=== PATIENT | female | born 1950 | race American Indian/Alaskan Native ===

== ENCOUNTER 2017-07-05 06:47 | Day surgery (SDC) | payer MEDICARE ==
[2017-07-05 07:14] VITALS: BMI 27.6
[2017-07-05 07:38] VITALS: O2SAT 100
--- NOTE | 2017-07-05 08:27 | CP.SDSHP ---
Same Day Surgery H & P - History Proposed Procedure: COLONSCOPY Pre-Op Diagnosis: SEE NOTES - Previous Medical/Surgical History Cardiac: Hypertension Misc: Other Pain: 4.Moderate Pain Previous Surgical History: COLON POLYP / COLONSCOPY - Allergies Allergies: Allergies Penicillins Allergy (Verified 07/05/17 07:19) RASH - Physical Exam General Appearance: N Vital Signs: Vital Signs 07/05/17 07:20 Temperature 97 F L Pulse Rate 74 Respiratory 16 Rate Blood Pressure 111/58 L O2 Sat by Pulse 100 Oximetry Mental Status: Alert & Oriented x3 Neuro: WNL Heart: Other Lungs: WNL GI: WNL - {Optional Preform as Required} Breast: WNL Abdomen: Other Rectal: Other Integument: WNL : WNL Ortho: Other ENT: WNL - Impression Pt. Evaluated Today:Candidate for Anesthesia & Procedure: Yes - Date & Time Time: 08:29 Short Stay Discharge - Short Stay Discharge Admitting Diagnosis/Reason for Visit: COLON POLYP HISTORY Disposition: HOME/ ROUTINE
[2017-07-05] MEDS ORDERED: Propofol 10 mg/ml Inj (20 ML) ONE (08:29)
[2017-07-05] MEDS ORDERED: Sodium Chloride 0.9% 20 ML IV ONE (08:41)
[2017-07-05] MEDS ORDERED: Lactated Ringer's 500 ML IV ONE (08:50)
[2017-07-05 09:00] VITALS: TEMP 97.8
[2017-07-05] MEDS ORDERED: Belladonna-Phenobarbital PO ONE (09:05)
[2017-07-05 09:11] VITALS: RESP 16
[2017-07-05 09:29] VITALS: BP 96/52; PULSE 73
== END 2017-07-05 10:05 | disposition home or self-care (01) ==
LOC: C.ENDO 06:47
PROVIDERS: ATTEND Specialist
DX: K57.90 Diverticulosis of intestine, part unspecified, without perforation or abscess without bleeding (principal); K64.8 Other hemorrhoids; K64.4 Residual hemorrhoidal skin tags; K58.9 Irritable bowel syndrome, unspecified
CPT/HCPCS: 45380; 88305; J2704; J7120